=== PATIENT | female | born 1980 | race Caucasian/White ===

== ENCOUNTER 2023-12-15 10:33 | Emergency (ER) | payer OTHER, SELFPAY ==
[2023-12-15 10:38] VITALS: BP 159/113
--- NOTE | 2023-12-15 11:03 | ED.GENMED ---
Addendum entered and electronically signed by Camilo Bender DO 12/15/23 15:39:
Update patient resting comfortably she is feeling better ultrasound completed she states she is hungry
Original Note:
History of Present Illness
General
Chief Complaint: Abdominal Pain
Source: patient and records
Exam Limitations: none
Time Seen by Provider: 12/15/23 10:43
Nursing documentation reviewed up to this point in time: agreed with
Travel History
Have you had any contact with someone who has COVID-19?: No
Do you have any symptoms of coronavirus? Fever > 100 degrees, chills, cough, shortness of breath, sore throat, loss of taste or smell, muscle aches, or headache?: No
History of Present Illness
History of Present Illness:
43-year-old female status post cholecystectomy presents with lower abdominal cramping somewhat reminiscent of her prior kidney stones and the pain was in the back manage underwent lithotripsy.. She messed up her control this month states she
has had intermittent cramping and that she denies has moderate pain in the lower abdomen ? history of ovarian cyst patient feels constipated no bowel movement for few days pain started at midmorning, went to bed woke up feeling fine was at
work no nausea or vomiting no upper abdominal pain
Past History
Past History
ED Past Medical History: HTN and Other (renal calculi, Pyelonephritis, Migraines, UTI, ADHD)
ED Past Surgical History: , Gynecological (Leep), Urological and Other (LEEP 'years ago', lithotripsy)
Social History
Tobacco: Non-smoker
Alcohol: Occasional
Drug: None
Personal: Single
Living: with family
Employment: Employed
Family History
Family History: Other (grandfather with history of DVT)
Review of Systems
Review of Systems
All Other Systems: Not applicable
Constitutional: Denies fever or fatigue
EENT: Reports no symptoms
Respiratory: Reports no symptoms
Cardiac: Reports no symptoms
ABD/GI: Reports abdominal pain and constipated; Denies nausea
Phy Exam
Physical Exam
Physical Exam:
Physical Exam
General: no apparent distress,looks uncomfortable
Neck: No jaundice
Heart: s1/s2 regular rate and rhythm, no murmur. equal radial pulses.
Lungs: no acute respiratory distress. clear bilaterally
Abdomen: Mild suprapubic tenderness
Neuro: alert and oriented. no focal neurological deficits
Skin: no rash
Psychiatric: well kept. interactive and cooperative
Extremities: no edema.
Course
Orders/Labs/Results
Orders:
Orders
12/15/23 10:53
CT Abd/pel Without Iv Or Oral Urgent
Comment:
Reason For Exam: pain h/o stones
0.9% Sodium Chloride 1000 ml [Nss] 1,000 ml IV BOLUS
Ketorolac [Toradol] 30 mg IV NOW STA
Test Result ONCE
12/15/23 11:29
Complete Blood Count/With Diff Urgent
Comprehensive Metabolic Panel Urgent
HCG, Serum Qualitative Screen Urgent
12/15/23 13:03
Urinalysis Reflex To Culture Urgent
Date Specimen was Collected: 12/15/23
Time Specimen was Collected: 12:37
12/15/23 13:20
US Pelvis Only (non-obstetric) Urgent
Comment:
Reason For Exam: pain hcg negative
Abnormal Lab Results
12/15/23
11:29
Lymphocytes % 19.4 L %
(20.5-51.1)
BUN 18 H mg/dl
(7-17)
Glucose 104 H mg/dl
(70-99)
12/15/23 11:29
12/15/23 11:29
Vital Signs
Initial and Last Documented VS:
Initial Vital Signs
Pulse Resp BP Pulse Ox
94 16 159/113 99
12/15/23 10:38 12/15/23 10:38 12/15/23 10:38 12/15/23 10:38
Last Documented Vital Signs
Pulse Resp BP Pulse Ox
92 16 157/108 100
12/15/23 11:25 12/15/23 11:25 12/15/23 11:25 12/15/23 11:25
MDM/Problems Addressed
Differential Diagnosis Includes:
Renal colic UTI ovarian cyst constipation ectopic appendicitis torsion
MDM/Problems Addressed:
Lower abdominal pain
Chronic conditions affecting care: Previous abdomnial surgery
Acute Exacerbation and/or Progression of Chronic Illness: Previous abdomnial surgery
*Radiology
Radiology exam reviewed: preliminary read by ED provider
*Pulse Oximetry
Patient hypoxic: no
*Critical Care Note
Total Time (30-74mins, 75-104mins- exclusive of procedures): Not Applicable
Update Note
Update Note:
1:15 pm
Labs noted hCG noted urine pending CAT scan noted perhaps a ruptured cyst will see how she is doing consideration for ultrasound
Patient feeling much better pain is almost improved suspected ruptured says she would like to stay for an ultrasound to complete the workup which is not unreasonable
ED Attending Note
-
Portions of this chart may have been created with voice recognition software.� Occasional wrong word or��sound alike� substitutions may have occurred due to the inherent limitations of voice recognition software.
Discharge Plan
Departure
Prescriptions:
No Action
dextroamphetamine-amphetamine [Adderall] 30 MG tablet
30 mg PO BID
losartan 50 mg Tablet
50 mg PO DAILY
Wegovy 1.7 mg/0.75 mL Pen Injector
1.7 mg SC QWEEK
Hold Instructions: Resume on 07/25/23.
Oral Contraceptive Pill
1 tab PO DAILY
acetaminophen [acetaminophen] 325 mg tablet
650 mg PO Q4HPRN PRN (Reason: mild pain) Qty: 1 0RF
ibuprofen 200 mg tablet
400 - 600 mg PO Q6HPRN PRN (Reason: moderate pain) Qty: 1 0RF
oxycodone 5 mg tablet
5 mg PO Q4HPRN PRN (Reason: breakthrough/severe pain) Qty: 10 0RF
Referrals:
Miri Pacheco CRNP [Family Provider] -
Interventions
Interventions:
*Risk Screen - Suicide Last Done: 12/15/23 11:25
*General Assessment Last Done: 12/15/23 11:25
*Neglect/Abuse Screening Last Done: 12/15/23 11:25
ED- Fall Risk Assessment Last Done: 12/15/23 11:25
*ED COVID-19 Vaccine History Last Done: 12/15/23 10:38
XK-Fvfeee-Eemjqkqyup Assessment Last Done: 12/15/23 11:25
Discharge Date and Time
Print Language: SINHALA
[2023-12-15 11:25] VITALS: BP 157/108; BMI 23.6
[2023-12-15] MEDS: NSS 1000 IV (11:29)
[2023-12-15] MEDS: TORADOL 30 MG IV (11:32)
[2023-12-15 11:42] LABS: % Basophils 0.3 % (0-2); % Eosinophils 0.3 % (0-6); % Immature Granulocytes 0.2 % (0-0.5); % Lymphocytes 19.4 % (20.5-51.1); % Monocytes 5.7 % (1.7-9.3); % Neutrophils 74.1 % (42.2-75.2); Absolute Lymphocytes 1.7 10^3/uL (1.2-3.4); Absolute Monocytes 0.5 10^3/uL (0.1-0.6); Absolute Neutrophils 6.5 10^3/uL (1.4-6.5); Hematocrit 39.3 % (37.0-47.0); Hemoglobin 13.1 g/dL (12.0-16.0); Mean Corp Hgb Conc. 33.3 g/dL (33.0-37.0); Mean Corpuscular Hgb 30.9 pg (27.0-31.0); Mean Corpuscular Volume 92.7 fL (81.0-99.0); Mean Platelet Volume 8.7 fL (7.4-10.4); Nucleated Red Blood Cells % 0 %; Platelet Count 393 10^3/uL (130-400); Red Blood Cell Count 4.24 10^6/uL (4.20-5.40); Red Cell Dist. Width 13.2 % (11.5-14.5); White Blood Cell Count 8.8 10^3/uL (4.8-10.8)
[2023-12-15 11:55] LABS: HCG, Serum Qualitative Screen Negative
[2023-12-15 11:58] LABS: ALT (SGPT) 17 U/L (0-35); AST (SGOT) 21 U/L (14-36); Albumin 4.4 g/dl (3.5-5.0); Alkaline Phosphatase 49 U/L (38-126); Blood Urea Nitrogen 18 mg/dl (7-17); Calcium 9.6 mg/dl (8.4-10.2); Carbon Dioxide 28 mmol/L (22-30); Chloride 102 mmol/L (98-107); Glucose 104 mg/dl (70-99); Potassium 4.2 mmol/L (3.5-5.1); Sodium 136 mmol/L (135-145); Total Bilirubin 0.5 mg/dl (0.2-1.3); Total Protein 7.4 g/dl (6.3-8.2); eGFR > 60.00
[2023-12-15 12:00] VITALS: BP 147/95
[2023-12-15 13:00] VITALS: BP 147/99
[2023-12-15 13:18] LABS: Urine Albumin Negative (Neg - Trace); Urine Bilirubin Negative (Negative); Urine Character Very Cloudy (Clear); Urine Color Yellow; Urine Glucose Negative (Negative); Urine Ketone Negative (Negative); Urine Leukocyte Negative (Negative); Urine Nitrite Negative (Negative); Urine Occult Blood Negative (Negative); Urine Specific Gravity 1.015 (<1.030); Urine Urobilinogen Negative (Neg - 1+)
[2023-12-15 14:00] VITALS: BP 157/103
--- NOTE | 2023-12-15 15:38 | ED.GENMED ---
History of Present Illness
General
Chief Complaint: Abdominal Pain
Time Seen by Provider: 12/15/23 10:43
Travel History
Have you had any contact with someone who has COVID-19?: No
Do you have any symptoms of coronavirus? Fever > 100 degrees, chills, cough, shortness of breath, sore throat, loss of taste or smell, muscle aches, or headache?: No
Past History
Past History
ED Past Medical History: HTN and Other (renal calculi, Pyelonephritis, Migraines, UTI, ADHD)
ED Past Surgical History: , Gynecological (Leep), Urological and Other (LEEP 'years ago', lithotripsy)
Social History
Tobacco: Non-smoker
Alcohol: Occasional
Drug: None
Personal: Single
Living: with family
Employment: Employed
Family History
Family History: Other (grandfather with history of DVT)
Course
Orders/Labs/Results
Orders:
Orders
12/15/23 10:53
CT Abd/pel Without Iv Or Oral Urgent
Comment:
Reason For Exam: pain h/o stones
0.9% Sodium Chloride 1000 ml [Nss] 1,000 ml IV BOLUS
Ketorolac [Toradol] 30 mg IV NOW STA
Test Result ONCE
12/15/23 11:29
Complete Blood Count/With Diff Urgent
Comprehensive Metabolic Panel Urgent
HCG, Serum Qualitative Screen Urgent
12/15/23 13:03
Urinalysis Reflex To Culture Urgent
Date Specimen was Collected: 12/15/23
Time Specimen was Collected: 12:37
12/15/23 13:20
US Pelvis Only (non-obstetric) Urgent
Comment:
Reason For Exam: pain hcg negative
Abnormal Lab Results
12/15/23
11:29
Lymphocytes % 19.4 L %
(20.5-51.1)
BUN 18 H mg/dl
(7-17)
Glucose 104 H mg/dl
(70-99)
12/15/23 11:29
12/15/23 11:29
Vital Signs
Initial and Last Documented VS:
Initial Vital Signs
Pulse Resp BP Pulse Ox
94 16 159/113 99
12/15/23 10:38 12/15/23 10:38 12/15/23 10:38 12/15/23 10:38
Last Documented Vital Signs
Pulse Resp BP Pulse Ox
87 16 157/103 99
12/15/23 14:00 12/15/23 14:00 12/15/23 14:00 12/15/23 14:00
Update Note
Update Note:
3:40 PM
Patient resting comfortably states she is feeling better ultrasound completed
She is hungry
ED Attending Note
-
Portions of this chart may have been created with voice recognition software.� Occasional wrong word or��sound alike� substitutions may have occurred due to the inherent limitations of voice recognition software.
Discharge Plan
Departure
Patient Disposition: Home (Routine Discharge)
Date of Disposition: 12/15/23
Time of Disposition: 15:16
Patient with high blood pressure during this ER visit?: No
Condition: Good
Discharge Problem:
Abdominal pain
Instructions: Ovarian Cyst (DC), Abdominal Pain
Prescriptions:
New
ketorolac 10 mg tablet
10 mg PO Q8H PRN (Reason: pain) Qty: 10 0RF
Rx Instructions:
maximum total duration of 5 days from all oral, intranasal, or parenteral formulations
No Action
dextroamphetamine-amphetamine [Adderall] 30 MG tablet
30 mg PO BID
losartan 50 mg Tablet
50 mg PO DAILY
Wegovy 1.7 mg/0.75 mL Pen Injector
1.7 mg SC QWEEK
Hold Instructions: Resume on 07/25/23.
Oral Contraceptive Pill
1 tab PO DAILY
acetaminophen [acetaminophen] 325 mg tablet
650 mg PO Q4HPRN PRN (Reason: mild pain) Qty: 1 0RF
ibuprofen 200 mg tablet
400 - 600 mg PO Q6HPRN PRN (Reason: moderate pain) Qty: 1 0RF
oxycodone 5 mg tablet
5 mg PO Q4HPRN PRN (Reason: breakthrough/severe pain) Qty: 10 0RF
Referrals:
Miri Pacheco CRNP [Family Provider] -
Interventions
Interventions:
*Risk Screen - Suicide Last Done: 12/15/23 11:25
*General Assessment Last Done: 12/15/23 11:25
*Neglect/Abuse Screening Last Done: 12/15/23 11:25
ED- Fall Risk Assessment Last Done: 12/15/23 11:25
*ED COVID-19 Vaccine History Last Done: 12/15/23 10:38
AZ-Qyhufg-Trgiuflnlg Assessment Last Done: 12/15/23 11:25
Discharge Date and Time
Print Language: YORUBA
--- NOTE | 2023-12-15 16:31 | ED.GENMED ---
History of Present Illness
General
Chief Complaint: Abdominal Pain
Time Seen by Provider: 12/15/23 10:43
Travel History
Have you had any contact with someone who has COVID-19?: No
Do you have any symptoms of coronavirus? Fever > 100 degrees, chills, cough, shortness of breath, sore throat, loss of taste or smell, muscle aches, or headache?: No
History of Present Illness
History of Present Illness:
See provider's note
Past History
Past History
ED Past Medical History: HTN and Other (renal calculi, Pyelonephritis, Migraines, UTI, ADHD)
ED Past Surgical History: , Gynecological (Leep) and Other (LEEP 'years ago', lithotripsy)
Social History
Tobacco: Non-smoker
Alcohol: Occasional
Drug: None
Personal: Single
Living: with family
Employment: Employed
Family History
Family History: Other (grandfather with history of DVT)
Phy Exam
Physical Exam
Physical Exam:
See provider's note
Course
Orders/Labs/Results
Orders:
Orders
12/15/23 10:53
CT Abd/pel Without Iv Or Oral Urgent
Comment:
Reason For Exam: pain h/o stones
0.9% Sodium Chloride 1000 ml [Nss] 1,000 ml IV BOLUS
Ketorolac [Toradol] 30 mg IV NOW STA
Test Result ONCE
12/15/23 11:29
Complete Blood Count/With Diff Urgent
Comprehensive Metabolic Panel Urgent
HCG, Serum Qualitative Screen Urgent
12/15/23 13:03
Urinalysis Reflex To Culture Urgent
Date Specimen was Collected: 12/15/23
Time Specimen was Collected: 12:37
12/15/23 13:20
US Pelvis Only (non-obstetric) Urgent
Comment:
Reason For Exam: pain hcg negative
Abnormal Lab Results
12/15/23
11:29
Lymphocytes % 19.4 L %
(20.5-51.1)
BUN 18 H mg/dl
(7-17)
Glucose 104 H mg/dl
(70-99)
12/15/23 11:29
12/15/23 11:29
Vital Signs
Initial and Last Documented VS:
Initial Vital Signs
Pulse Resp BP Pulse Ox
94 16 159/113 99
12/15/23 10:38 12/15/23 10:38 12/15/23 10:38 12/15/23 10:38
Last Documented Vital Signs
Pulse Resp BP Pulse Ox
86 16 155/108 99
12/15/23 16:53 12/15/23 16:53 12/15/23 16:53 12/15/23 14:00
*Critical Care Note
Total Time (30-74mins, 75-104mins- exclusive of procedures): Not Applicable
Update Note
Update Note:
4:30 PM care of patient was transitioned pending ultrasound. Ultrasound shows no evidence of cyst or torsion. Patient states he is feeling better. Feels comfortable going home. We discussed the possibility of ruptured ovarian cyst. Discussed
follow-up with PCP
ED Attending Note
-
Portions of this chart may have been created with voice recognition software.� Occasional wrong word or��sound alike� substitutions may have occurred due to the inherent limitations of voice recognition software.
Discharge Plan
Departure
Patient Disposition: Home (Routine Discharge)
Date of Disposition: 12/15/23
Time of Disposition: 15:16
Patient with high blood pressure during this ER visit?: No
Condition: Good
Discharge Problem:
Abdominal pain
Instructions: Ovarian Cyst (DC), Abdominal Pain
Prescriptions:
New
ketorolac 10 mg tablet
10 mg PO Q8H PRN (Reason: pain) Qty: 10 0RF
Rx Instructions:
maximum total duration of 5 days from all oral, intranasal, or parenteral formulations
No Action
dextroamphetamine-amphetamine [Adderall] 30 MG tablet
30 mg PO BID
losartan 50 mg Tablet
50 mg PO DAILY
Wegovy 1.7 mg/0.75 mL Pen Injector
1.7 mg SC QWEEK
Hold Instructions: Resume on 07/25/23.
Oral Contraceptive Pill
1 tab PO DAILY
acetaminophen [acetaminophen] 325 mg tablet
650 mg PO Q4HPRN PRN (Reason: mild pain) Qty: 1 0RF
ibuprofen 200 mg tablet
400 - 600 mg PO Q6HPRN PRN (Reason: moderate pain) Qty: 1 0RF
oxycodone 5 mg tablet
5 mg PO Q4HPRN PRN (Reason: breakthrough/severe pain) Qty: 10 0RF
Referrals:
Miri Pacheco CRNP [Family Provider] -
Interventions
Interventions:
*Risk Screen - Suicide Last Done: 12/15/23 11:25
*General Assessment Last Done: 12/15/23 11:25
*Neglect/Abuse Screening Last Done: 12/15/23 11:25
ED- Fall Risk Assessment Last Done: 12/15/23 11:25
*ED COVID-19 Vaccine History Last Done: 12/15/23 10:38
*Nursing Disposition Last Done: 12/15/23 16:53
EH-Egfwmc-Bcioqxshiw Assessment Last Done: 12/15/23 11:25
Discharge Date and Time
Discharge Date/Time: 12/15/23 16:54
Print Language: LATVIAN
[2023-12-15 16:53] VITALS: BP 155/108
== END 2023-12-15 16:54 | disposition home or self-care (01) ==
LOC: EMR 10:33
PROVIDERS: EMERGENCY PHYSICIAN Emergency Medicine; FAMILY PHYSICIAN Nurse Practitioner Adult Health
DX: R10.30 Lower abdominal pain, unspecified (principal); K59.00 Constipation, unspecified; N83.209 Unspecified ovarian cyst, unspecified side; F90.9 Attention-deficit hyperactivity disorder, unspecified type; I10 Essential (primary) hypertension; G43.909 Migraine, unspecified, not intractable, without status migrainosus; Z90.49 Acquired absence of other specified parts of digestive tract; Z87.442 Personal history of urinary calculi; Z87.440 Personal history of urinary (tract) infections
CPT/HCPCS: 99284; 96374; 96361 ×3; 74176; 76856; 80053; 81003; 84703; 85025

== ENCOUNTER 2024-05-20 14:48 | Emergency (ER) | payer OTHER, SELFPAY ==
[2024-05-20 14:53] VITALS: BP 188/114
[2024-05-20 15:18] VITALS: BP 163/103
[2024-05-20 15:18] LABS: % Basophils 0.5 % (0-2); % Eosinophils 1.1 % (0-6); % Immature Granulocytes 0.4 % (0-0.5); Absolute Eosinophils 0.1 10^3/uL (0-0.7); Absolute Lymphocytes 2.7 10^3/uL (1.2-3.4); Absolute Monocytes 0.5 10^3/uL (0.1-0.6); Absolute Neutrophils 4.7 10^3/uL (1.4-6.5); Hematocrit 34.2 % (37.0-47.0); Hemoglobin 11.5 g/dL (12.0-16.0); Mean Corp Hgb Conc. 33.6 g/dL (33.0-37.0); Mean Corpuscular Hgb 29.2 pg (27.0-31.0); Mean Corpuscular Volume 86.8 fL (81.0-99.0); Mean Platelet Volume 8.4 fL (7.4-10.4); Nucleated Red Blood Cells % 0 %; Platelet Count 340 10^3/uL (130-400); Red Blood Cell Count 3.94 10^6/uL (4.20-5.40); Red Cell Dist. Width 13.5 % (11.5-14.5)
[2024-05-20 15:32] LABS: HCG, Serum Qualitative Screen Negative
--- NOTE | 2024-05-20 15:37 | ED.GENMED ---
History of Present Illness
General
Chief Complaint: Headache
Source: patient
Exam Limitations: none
Time Seen by Provider: 05/20/24 15:12
Nursing documentation reviewed up to this point in time: agreed with
History of Present Illness
History of Present Illness:
43-year-old female past medical history of ADHD hypertension presenting to the emergency department today with concerns of posterior left-sided headache over the past 10 days seems to be somewhat persistent has been taking Motrin Benadryl without
for relief. Denies any numbness weakness change in vision nausea vomiting. Denies any history of migraine syndromes.
Past History
Past History
ED Past Medical History: HTN and Other (renal calculi, Pyelonephritis, Migraines, UTI, ADHD)
ED Past Surgical History: , Gynecological (Leep) and Other (LEEP 'years ago', lithotripsy)
Social History
Tobacco: Non-smoker
Alcohol: Occasional
Drug: None
Personal: Single
Living: with family
Employment: Employed
Family History
Family History: Other (grandfather with history of DVT)
Review of Systems
Review of Systems
Allergies reviewed?: Yes
All Other Systems: ROS reviewed and negative except as documented in HPI and ROS
Phy Exam
Physical Exam
Physical Exam:
GENERAL: Alert , in no apparent distress
EYE: pupils equal and reactive
NECK: Mildly reproducible discomfort to the superior left-sided posterior neck no overlying skin changes no rash supple, no significant adenopathy.
ENT: o/p clr, mmm.
CARDIAC: Regular rate and rhythm .
LUNGS: Clear breath sounds bilaterally, no acute respiratory distress, no wheezes/rales/rhonchi
ABDOMEN: Soft, without focal tenderness, no r/g, no cvat
NEUROLOGICAL: Alert and oriented, no focal neuro deficits 5-5 upper and lower extremity strength normal sensation with palpating bilaterally normal finger-nose and heel andrade no pronator drift
SKIN: Warm and dry, skin intact.
MUSCULOSKELETAL: No edema, well perfused.
PSYCH: Normal and appropriate interaction.
Course
Orders/Labs/Results
Orders:
Orders
05/20/24 14:57
Test Result ONCE
05/20/24 15:06
Complete Blood Count/With Diff Urgent
Comprehensive Metabolic Panel Urgent
HCG, Serum Qualitative Screen Urgent
05/20/24 15:31
CT Head W/o Iv Contrast Urgent
Comment:
Reason For Exam: headache posterior
Dexamethasone Sod Phosphate [Decadron] 10 mg IV NOW STA
Ketorolac [Toradol] 30 mg IV NOW STA
Metoclopramide [Reglan] 10 mg IV NOW STA
05/20/24 15:35
0.9% Sodium Chloride 1000 ml [Nss] 1,000 ml IV BOLUS
Abnormal Lab Results
05/20/24
15:06
RBC 3.94 L 10^6/uL
(4.20-5.40)
Hgb 11.5 L g/dL
(12.0-16.0)
Hct 34.2 L %
(37.0-47.0)
BUN 20 H mg/dl
(7-17)
05/20/24 15:06
05/20/24 15:06
Vital Signs
Initial and Last Documented VS:
Initial Vital Signs
Temp Pulse Resp BP Pulse Ox
98.1 F 95 18 188/114 100
05/20/24 14:53 05/20/24 14:53 05/20/24 14:53 05/20/24 14:53 05/20/24 14:53
Last Documented Vital Signs
Temp Pulse Resp BP Pulse Ox
98.1 F 77 18 158/99 99
05/20/24 14:53 05/20/24 16:00 05/20/24 16:00 05/20/24 16:00 05/20/24 16:00
MDM/Problems Addressed
MDM/Problems Addressed:
43-year-old female presenting to the emergency department today with concerns of headache described as sharp and achy throbbing to the left posterior head no specific palliation or provocation no inciting event denies similar symptoms in the past.
No nausea vomiting numbness or weakness. Here initial blood pressure elevated otherwise vital signs are normal. Labs without emergent findings. Physical examination without acute abnormalities no neurologic changes. CT scan obtained without
acute abnormalities was given Toradol and dexamethasone with significant improvement in symptoms. She was advised to follow-up closely with neurology return precautions given.
*Critical Care Note
Total Time (30-74mins, 75-104mins- exclusive of procedures): Not Applicable
ED Attending Note
-
Portions of this chart may have been created with voice recognition software.� Occasional wrong word or��sound alike� substitutions may have occurred due to the inherent limitations of voice recognition software.
Discharge Plan
Departure
Patient Disposition: Home (Routine Discharge)
Date of Disposition: 05/20/24
Time of Disposition: 17:42
Patient with high blood pressure during this ER visit?: No
Condition: Good
Covid-19: Not Applicable
Discharge Problem:
Headache
Instructions: Headache, Adult (DC)
Prescriptions:
No Action
dextroamphetamine-amphetamine [Adderall] 30 MG tablet
30 mg PO BID
losartan 50 mg Tablet
50 mg PO DAILY
Wegovy 1.7 mg/0.75 mL Pen Injector
1.7 mg SC QWEEK
Oral Contraceptive Pill
1 tab PO DAILY
acetaminophen [acetaminophen] 325 mg tablet
650 mg PO Q4HPRN PRN (Reason: mild pain) Qty: 1 0RF
ibuprofen 200 mg tablet
400 - 600 mg PO Q6HPRN PRN (Reason: moderate pain) Qty: 1 0RF
oxycodone 5 mg tablet
5 mg PO Q4HPRN PRN (Reason: breakthrough/severe pain) Qty: 10 0RF
ketorolac 10 mg tablet
10 mg PO Q8H PRN (Reason: pain) Qty: 10 0RF
Rx Instructions:
maximum total duration of 5 days from all oral, intranasal, or parenteral formulations
Referrals:
Nancy Sullivan MD [Active] - Follow up in 1 week
Miri Pacheco CRNP [Family Provider] -
Activity Restrictions/Additional Instructions:
You came to the emergency department today with concerns of headache. Here you had a reassuring head CT. Please follow-up closely with neurology. Return to the emergency department any worsening, new or concerning symptoms.
Interventions
Interventions:
*Risk Screen - Suicide Last Done: 05/20/24 14:53
*General Assessment Last Done: 05/20/24 14:53
*Neglect/Abuse Screening Last Done: 05/20/24 14:53
*ED COVID-19 Vaccine History Last Done: 05/20/24 15:18
ED- Neurological Assessment Last Done: 05/20/24 15:18
Discharge Date and Time
Print Language: FILIPINO
[2024-05-20 15:39] LABS: ALT (SGPT) 15 U/L (0-35); AST (SGOT) 20 U/L (14-36); Albumin 4.1 g/dl (3.5-5.0); Alkaline Phosphatase 44 U/L (38-126); Blood Urea Nitrogen 20 mg/dl (7-17); Carbon Dioxide 24 mmol/L (22-30); Chloride 105 mmol/L (98-107); Glucose 95 mg/dl (70-99); Potassium 4.1 mmol/L (3.5-5.1); Sodium 141 mmol/L (135-145); Total Bilirubin 0.3 mg/dl (0.2-1.3); Total Protein 6.6 g/dl (6.3-8.2); eGFR > 60.00
[2024-05-20] MEDS: NSS 1000 IV (15:48)
[2024-05-20] MEDS: TORADOL 30 MG IV (15:49)
[2024-05-20] MEDS: DECADRON 10 MG IV (15:49)
[2024-05-20 16:00] VITALS: BP 158/99
[2024-05-20 18:00] VITALS: BP 152/73
== END 2024-05-20 18:17 | disposition home or self-care (01) ==
LOC: EMR 14:48
PROVIDERS: EMERGENCY PHYSICIAN Emergency Medicine; FAMILY PHYSICIAN Nurse Practitioner Adult Health
DX: R51.9 Headache, unspecified (principal); F90.9 Attention-deficit hyperactivity disorder, unspecified type; I10 Essential (primary) hypertension; Z87.442 Personal history of urinary calculi; Z87.440 Personal history of urinary (tract) infections
CPT/HCPCS: 99284; 96374; 96375 ×2; 96361; 70450; 80053; 84703; 85025